=== PATIENT | male | born 1990 | race Caucasian/White ===

== ENCOUNTER 2020-01-17 06:50 | Emergency (ER) | payer SELFPAY ==
[~2020-01-17] VITALS: Ht 172.7 cm; Wt 120.0 kg
[2020-01-17 06:51] VITALS: BP 122/83
== END 2020-01-17 07:36 | disposition home or self-care (01) ==
LOC: ER 06:50
DX: S63.501A Unspecified sprain of right wrist, initial encounter (principal); Y93.89 Activity, other specified; Y92.89 Other specified places as the place of occurrence of the external cause; Y99.8 Other external cause status
CPT/HCPCS: 29125; 73100; 73130; 99284